=== PATIENT | female | born 1955 | race Caucasian/White ===

== ENCOUNTER 2025-08-11 16:26 | Emergency (ER) | payer SELFPAY ==
[2025-08-11 17:08] VITALS: BP 158/75; PULSE 75
== END 2025-08-11 19:20 | disposition home or self-care (01) ==
LOC: JP.ED 16:26
DX: T23.251A Burn of second degree of right palm, initial encounter (principal); T20.12XA Burn of first degree of lip(s), initial encounter; T21.11XA Burn of first degree of chest wall, initial encounter; T23.172A Burn of first degree of left wrist, initial encounter; Z79.899 Other long term (current) drug therapy; X12.XXXA Contact with other hot fluids, initial encounter
CPT/HCPCS: 16020; 99283-25